=== PATIENT | female | born 1965 | race Caucasian/White ===

== ENCOUNTER → 2020-09-19 | Outpatient (CLI) | payer OTHER ==
[~2020-09-19] MED LIST: HOLD METFORMIN - RECEIVED CONTRAST 20 ML VIAL IV SCH; IOHEXOL 350 MG/ML 100 ML (OMNIPAQUE 350) VIAL IV ONE; NS 100 ML (IVPB) BAG IV ONE
--- NOTE | 2020-09-19 10:00 | Diagnostic Imaging Report ---
PROCEDURE: CT head with and without contrast. TECHNIQUE: Multiple contiguous axial images were obtained through the brain before and after the administration of intravenous contrast. Auto Exposure Controls were utilized during the CT exam to meet ALARA standards for radiation dose reduction. INDICATION: Headache and nosebleeds for 1 month. COMPARISON: No prior studies are available for comparison. FINDINGS: The ventricles and sulci are within normal limits. No sulcal effacement or midline shift is detected. No acute intra-axial or extra-axial hemorrhage is identified. Post contrast images are without abnormal intracranial enhancement. There is symmetric enhancement to the posterior nasopharynx. The adenoidal tissue does appear to be prominent for the patient's age. Small cystic changes are located within the tissue. This is incompletely included on this exam. No other abnormalities are seen. IMPRESSION: 1. No acute intracranial process is detected. 2. The patient does have prominent adenoidal tissue for age which does show diffuse enhancement and some mild cystic changes. A dedicated CT neck with contrast would be useful for better characterization. Dictated by: Dictated on workstation # [id number]
== END ==
LOC: RAD 09:45
PROVIDERS: ATTEND Family Medicine
DX: R51.9 Headache, unspecified (principal); R04.0 Epistaxis; R42 Dizziness and giddiness
CPT/HCPCS: 70470

== ENCOUNTER → 2020-11-02 | Outpatient (CLI) | payer OTHER ==
[~2020-11-02] MED LIST changes: +CATHETER FLUSH 10 ML SYR IV PRN
--- NOTE | 2020-11-02 08:56 | Diagnostic Imaging Report ---
PROCEDURE: CT neck soft tissue with contrast. TECHNIQUE: Multiple contiguous axial images were obtained through the neck after the administration of contrast. Auto Exposure Controls were utilized during the CT exam to meet ALARA standards for radiation dose reduction. INDICATION: Headaches since August. Left-sided ischemic attack. COMPARISON: 09/19/2020. Findings: The posterior nasopharynx and oropharynx demonstrate appropriate symmetry. There is no displacement of the parapharyngeal fat planes. There is no abnormal process evident within the prevertebral or retropharyngeal space. There is no evidence of abnormal thickening of the epiglottis or aryepiglottic folds. The vocal folds appear symmetric. The parotid, submandibular and thyroid gland are unremarkable. No pathologically enlarged cervical lymph nodes are evident. No focal inflammatory changes are demonstrated. No soft tissue mass or fluid collection demonstrated. The vascular structures the neck demonstrate no evidence of high-grade stenosis on this nondedicated exam. Small amount of centrilobular emphysema is seen in the lung apices. No focal consolidations. The visualized intracranial contents demonstrate no evidence of pathologic intracranial enhancement or intracranial mass effect. Visualized orbital contents are unremarkable. The visualized paranasal sinuses are clear. The mastoids and middle ears are clear. No acute osseous abnormality in the cervical spine. Impression: 1. Appropriate symmetry of the aerodigestive tract. 2. No evidence of pathologic adenopathy. 3. No soft tissue mass, fluid collection or focal inflammatory changes demonstrated. 4. Small amount of centrilobular emphysema in the lung apices. Dictated by: Dictated on workstation # [id number]
--- NOTE | 2020-11-02 12:36 | Diagnostic Imaging Report ---
PROCEDURE: US carotid duplex, bilateral. TECHNIQUE: Multiple real-time grayscale images were obtained over the carotid arteries in various projections, bilaterally. Additional spectral analysis and color Doppler duplex images were also obtained. INDICATION: Ischemic attack, left-side. COMPARISON: There are no prior studies available for comparison. There is mild soft plaque formation in both carotid systems. The flow velocities failed to show any sign of a hemodynamically significant stenosis of the common or internal carotid arteries. Both vertebral arteries were noted and there was antegrade flow bilaterally. IMPRESSION: .There is mild atherosclerotic disease involving both carotid systems. There is no evidence for a hemodynamically significant stenosis of the common or internal carotid arteries however. Parameters based on the consensus panel Chacon-Scale and Doppler ultrasound criteria published September 2003, Radiology, Volume 229. DOPPLER (peak systolic velocity M/S Right Left CCA .63 .74 ICA Proximal 1.0 .69 ICA Mid 1.1 .88 ICA Distal 1.2 1.0 RATIO 1.6 1.5 ECA .50 .76 VERT .68 .71 Dictated by: Dictated on workstation # [id number]
== END ==
LOC: RAD 07:51
PROVIDERS: ATTEND Family Medicine
DX: I69.354 Hemiplegia and hemiparesis following cerebral infarction affecting left non-dominant side (principal); J43.9 Emphysema, unspecified
CPT/HCPCS: 70491; 93880

== ENCOUNTER 2021-05-16 19:33 | Emergency (ER) | payer OTHER ==
[~2021-05-16] VITALS: Ht 157.5 cm; Wt 51.3 kg
[2021-05-16 20:00] VITALS: BP 124/71
[2021-05-16] MEDS ORDERED: PRD20T PO (20:11)
--- NOTE | 2021-05-16 20:11 | ED Integumentary General ---
General Chief Complaint: Bite-Animal/Human/Insect Stated Complaint: SORE ON L LEG Source: patient Exam Limitations: no limitations History of Present Illness Date Seen by Provider: May 16, 2021 Time Seen by Provider: 20:02 Initial Comments This is a well-appearing 56-year-old female who presents to the ER with complaints of left lower extremity pain after being bit by a spider 2 nights ago. States she wanted to have area checked out because her brother believes the spider was a brown recluse. No fevers, rashes, chills, nausea, vomiting, diarrhea, abdominal pain. Allergies and Home Medications Allergies Coded Allergies: No Allergy Information Available (Unverified , 09/19/20) Home Medications Prednisone 20 Mg Tab, 10 MG PO DAILY Prescribed by: BRINDA CHAPARRO on 05/16/212010 Patient Home Medication List Home Medication List Reviewed: Yes Review of Systems Review of Systems Constitutional: no symptoms reported EENTM: no symptoms reported Respiratory: no symptoms reported Cardiovascular: no symptoms reported Gastrointestinal: no symptoms reported Genitourinary: no symptoms reported Musculoskeletal: no symptoms reported Skin: see HPI Psychiatric/Neurological: No Symptoms Reported Endocrine: No Symptoms Reported Physical Exam Vital Signs Vital Signs - First Documented 05/16/21 20:00 Temp 36.7 Pulse 91 Resp 16 B/P (MAP) 124/71 (88) Pulse Ox 97 O2 Delivery Room Air Capillary Refill : General Appearance: WD/WN, no apparent distress HEENT: PERRL/EOMI, normal ENT inspection Neck: full range of motion, normal inspection Cardiovascular: normal peripheral pulses, regular rate, rhythm Respiratory: lungs clear, normal breath sounds Gastrointestinal: normal bowel sounds, non tender, soft Extremities: normal range of motion, normal inspection; No swelling Neurologic/Psychiatric: no motor/sensory deficits, alert, normal mood/affect, oriented x 3 Skin: normal color, warm/dry Skin Problem Location: other (Left lateral calf ) Skin Problem Character: lesion (dry pink scab, no rash, redness, or warmth to area. No purplish center or bullseye appreciated. ) Progress/Results/Core Measures Results/Orders My Orders Orders - BRINDA CHAPARRO APRN Prednisone Tablet (Deltasone Tablet) (05/16/21 20:15) Vital Signs/I&O 05/16/21 20:00 Temp 36.7 Pulse 91 Resp 16 B/P (MAP) 124/71 (88) Pulse Ox 97 O2 Delivery Room Air Departure Impression Primary Impression: Spider bite wound Disposition: 01 HOME, SELF-CARE Condition: Stable Departure-Patient Inst. Decision time for Depature: 20:09 Referrals: JO ANN GROVES DO (PCP/Family) Primary Care Physician Patient Instructions: Spider Bites Add. Discharge Instructions: Plan: 1. Take Prednisone daily with food. 2. Use ice to area 20 minutes at a time. AVOID heat. 3. May take Tylenol or Ibuprofen as needed for pain per package. 4. Return for any new, concerning, or worsening symptoms. All discharge instructions reviewed with patient and/or family. Voiced understanding. Scripts Prednisone (Prednisone) 20 Mg Tab 10 MG PO DAILY for 4 Days, #2 TAB 0 Refills Prov: BRINDA CHAPARRO GREY IRON MOLDER 05/16/21 BRINDA CHAPARRO GREY IRON MOLDER May 16, 2021 20:11
[2021-05-16] MEDS ORDERED: predniSONE 10 MG TAB PO ONE (20:15)
== END 2021-05-16 20:14 | disposition home or self-care (01) ==
LOC: EDUNIT# 19:33 → ER 19:34
DX: T63.301A Toxic effect of unspecified spider venom, accidental (unintentional), initial encounter (principal)
CPT/HCPCS: 99283

== ENCOUNTER 2021-05-30 06:16 | Outpatient (CLI) | payer OTHER ==
[~2021-05-30] VITALS: Ht 157.5 cm; Wt 53.5 kg
[~2021-05-30 06:16] MED LIST changes: -CATHETER FLUSH 10 ML SYR IV PRN; -HOLD METFORMIN - RECEIVED CONTRAST 20 ML VIAL IV SCH; -IOHEXOL 350 MG/ML 100 ML (OMNIPAQUE 350) VIAL IV ONE; -NS 100 ML (IVPB) BAG IV ONE; +PRD20T PO
[2021-06-01] MEDS ORDERED: LISI10TA25 PO (14:06)
[2021-06-01] MEDS ORDERED: LORA10TA7 PO (14:06)
== END 2021-06-01 14:14 | disposition home or self-care (01) ==
LOC: PREOP 06:16
PROVIDERS: ATTEND Surgery
DX: Z01.818 Encounter for other preprocedural examination (principal)

== ENCOUNTER 2021-06-06 09:26 | Day surgery (SDC) | payer OTHER ==
[~2021-06-06] VITALS: Ht 157.5 cm; Wt 53.5 kg
[2021-06-06] VITALS (10 sets, daily range): BP systolic 92–107; BP diastolic 53–64
[~2021-06-06 09:26] MED LIST changes: +LISI10TA25 PO; +LORA10TA7 PO
[2021-06-06] MEDS ORDERED: ceFAZolin 2 GM IV Premixed 50 ML IV ONE (09:45)
--- NOTE | 2021-06-06 10:14 | Progress Note-Pre Operative ---
Pre-Operative Progress Note H&P Reviewed The H&P was reviewed, patient examined and no changes noted. Time Seen by Provider: 10:11 Date H&P Reviewed: Jun 06, 2021 Time H&P Reviewed: 10:11 Pre-Operative Diagnosis: Right cheek mass, site marked WALTER MARTIN DO Jun 06, 2021 10:14
[2021-06-06] MEDS ORDERED: LIDOCAINE PF 2% 5 ML (XYLOCAINE) VIAL ONE (10:27)
[2021-06-06] MEDS ORDERED: fentaNYL INJ 100 MCG/2 ML AMP ONE (10:27)
[2021-06-06] MEDS ORDERED: proPOfol 200 MG/20 ML (DIPRIVAN) VIAL IV ONE (10:27)
[2021-06-06] MEDS ORDERED: MIDAZOLAM 2 MG/2 ML (VERSED) VIAL ONE (10:28)
[2021-06-06] MEDS: LACTATED RINGERS 1,000 ML IV PRN ×2 (10:37→11:44)
[2021-06-06] MEDS ORDERED: LIDOCAINE/EPI 1%-1:100,000 (XYLOCAINE) 20ML ONE (10:43)
[2021-06-06] MEDS ORDERED: ONDANSETRON 4 MG/2 ML (SDV) Z0FRAN ONE ×2 (10:59→11:38)
[2021-06-06] MEDS ORDERED: ACHD5005 PO (11:27)
--- NOTE | 2021-06-06 11:27 | Progress Note-Post Operative ---
Post-Operative Progess Note Surgeon (s)/Desktop Support Technician (s) Surgeon WALTER MARTIN DO Desktop Support Technician: none Pre-Operative Diagnosis Right cheek mass, site marked Post-Operative Diagnosis same it was subQ and possibly sebaceous cyst Procedure & Operative Findings Date of Procedure 06/06/21 Procedure Performed/Findings Exc SubQ cheek mass, 3 x 1.6cm incision Anesthesia Type LMA Estimated Blood Loss Estimated blood loss (mL): scant Specimens/Packing Specimens Removed cheek mass WALTER MARTIN DO Jun 06, 2021 11:27
--- NOTE | 2021-06-06 11:29 | Discharge Inst-Surgical ---
Discharge Inst-Surgical Depart Medication/Instructions New, Converted or Re-Newed RX: Transmitted to Pharmacy Patient Instructions Follow up Appt: Make appointment for 1 week. [phone] Instructions: No lifting greater than 20 pounds. No strenuous activity. May shower in 24 hours, no tub bath or soaking. Use incentive spirometer at home as directed. No Smoking Skin/Wound Care: May remove bandages in am. You need to leave the Dermabond on incision it will fall off on it's own. Symptoms to Report: Appetite Changes, Extremity Discoloration, Numbness/Tingling, Swelling Increased, Bleeding Excessive, Eyesight Changes, Pain Increased, Urine Color Change, Constipation(Persistent), Fever over 101 degree F, Pain/Pressure in chest, Urinating Difficulty, Cough Up/Vomit Blood, Heart Beat Irreg/Pounding, Pain/Pressure in jaw, Cramps in feet or legs, Lightheadedness, Pain/Pressure in shoulder, Diarrhea(Persistent), Memory Changes Suddenly, Questions/Concerns, Weight gain consecutive days, Dizziness/Fainting, Nausea/Vomiting, Shortness of Breath, Weight gain over 2 pounds If questions or concerns contact your physician Or seek help at emergency department. Activity Activity as Tolerated: Yes Activity Instructions: Avoid Stress to Incision Driving Instructions: No Driving/Refer to Dr. Torres Discharge Diet: No Restrictions Diet After 24 Hours: Clear Liquid if Nauseous If Any Problems/Questions/Issu: Contact Your Physician, Go to Emergency Room Skin/Wound Care Infection Signs and Symptoms: Increased Redness, Foul Odor of Wound, Increased Drainage, Skin Itchy or Has a Rash, Increased Swelling, Temperature Above 101 F Bathing Instructions: Shower Stitches/[place]/Dermabond Dis: WALTER Perera DO Jun 06, 2021 11:29
[2021-06-06] MEDS ORDERED: SEVOFLURANE (ULTANE) 15 ML INHAL SOLN ONE (11:33)
--- NOTE | 2021-06-06 11:38 | Anesthesia-General Post-Op ---
General Patient Condition Mental Status/LOC: Same as Preop Cardiovascular: Satisfactory Nausea/Vomiting: Absent Respiratory: Satisfactory Pain: Controlled Complications: Absent Post Op Complications Complications None Follow Up Care/Instructions Patient Instructions None needed. Anesthesia/Patient Condition Patient Condition Patient is doing well, no complaints, stable vital signs, no apparent adverse anesthesia problems. No complications reported per nursing. EZRA ANN CRNA Jun 06, 2021 11:38
[2021-06-06] MEDS ORDERED: ONDANSETRON 4 MG/2 ML (SDV) Z0FRAN IVP PRN (11:45)
[2021-06-06] MEDS ORDERED: PROMETHAZINE INJ 25 MG/ML (PHENERGAN) AMP IVP ONE (11:45)
[2021-06-06] MEDS ORDERED: MEPERIDINE (DEMEROL) INJ 50 MG/ML IVP ONE (11:45)
[2021-06-06] MEDS ORDERED: morphine INJ 10 MG/ML 1ML (SYR OR VIAL) IVP ONE (11:45)
--- NOTE | 2021-06-06 18:02 | OPERATIVE REPORT ---
DATE OF SERVICE: PREOPERATIVE DIAGNOSIS: Right cheek mass. POSTOPERATIVE DIAGNOSIS: Right cheek mass, subcutaneous, possible sebaceous cyst. PROCEDURE PERFORMED: Excision of right cheek mass, 3 cm x 1.6 cm incision. SURGEON: Quincy Bernard DO. URBAN DESIGNER: None. ANESTHESIA: LMA. SPECIMEN: Right cheek mass. BLOOD LOSS: Scant. FLUIDS: Per anesthesia. POSTOPERATIVE CONDITION: Stable. INDICATION FOR PROCEDURE: The patient is a 56-year-old female, who has had a mass removed in the office, came back right away and she wanted this removed in the hospital. FINDINGS: The patient had a right cheek mass. It looked like it was subcutaneous and when we were taking it out, it got a little bit of whitish material, so it looked like may have been a sebaceous cyst, removed and sent to pathology. PROCEDURE NOTE: After informed consent was obtained, the patient was brought to the operating room, and placed on the operating table in supine position. She was sterilely prepped and draped in a normal fashion. Local lidocaine was used to infiltrate the skin around this right cheek mass. For elliptical incision, I used a marking to draw on the skin and then infiltrated under this Marcaine with lidocaine and I made an incision with a #15 blade along this marking, carried down through the skin into the subcutaneous tissue and deepened down to the subcutaneous tissue with Bovie electrocautery, removing the skin and subcutaneous tissue, removing the subcutaneous mass that was in the subcutaneous fat, removed in en bloc. There was a little bit of white material that came out on top of the skin, so this may have been a sebaceous cyst. This was all passed off the table and sent to pathology. At this point, I then obtained hemostasis and then closed the incision with 4-0 undyed Monocryl, three interrupted subcuticular stitches and it closed very nicely. Skin Affix was placed. The patient tolerated the procedure. Sponge, instrument and needle counts were correct at the end of the case and she was transferred to the recovery room in stable condition. Job ID: [id number] DocumentID: [id number] Dictated Date: 06/06/2021 11:57:33 Rental Sales Associate Date: 06/06/2021 18:02:00 Dictated By: QUINCY BERNARD DO
== END 2021-06-06 13:12 | disposition home or self-care (01) ==
LOC: SDC 09:26
PROVIDERS: ATTEND Surgery
DX: L72.0 Epidermal cyst (principal); L90.5 Scar conditions and fibrosis of skin; I10 Essential (primary) hypertension; F17.210 Nicotine dependence, cigarettes, uncomplicated; Z79.899 Other long term (current) drug therapy
CPT/HCPCS: 87081; 88304

== ENCOUNTER 2022-03-25 19:34 | Emergency (ER) | payer OTHER ==
[~2022-03-25 19:34] MED LIST changes: +ACHD5005 PO
[2022-03-25] MEDS ORDERED: TETANUS,DIPTH,PERTUSS P/F (BOOSTRIX) 0.5 ML VIAL IM ONE (20:15)
[2022-03-25] MEDS ORDERED: ASPIRIN 81 MG CHEW (CHILDREN'S ASA) PO ONE (20:15)
[2022-03-25] MEDS ORDERED: LACTATED RINGERS 1,000 ML IV ONE (20:15)
[2022-03-25] MEDS ORDERED: ONDANSETRON 4 MG/2 ML (SDV) Z0FRAN IVP ONE (20:15)
[2022-03-25 20:53] LABS: BASOPHILS # (AUTO) 0.1 10^3/uL (0.0-0.1); BASOPHILS % (AUTO) 1 % (0-10); EOSINOPHILS # (AUTO) 0.2 10^3/uL (0.0-0.3); EOSINOPHILS % (AUTO) 2 % (0-10); HEMATOCRIT 39 % (35-52); LYMPHOCYTES # (AUTO) 2.3 10^3/uL (1.0-4.0); LYMPHOCYTES % (AUTO) 22 % (12-44); MEAN CORPUSCULAR HEMOGLOBIN 31 pg (25-34); MEAN CORPUSCULAR HGB CONC 33 g/dL (32-36); MEAN CORPUSCULAR VOLUME 93 fL (80-99); MEAN PLATELET VOLUME 12.2 fL (9.0-12.2); MONOCYTES # (AUTO) 0.5 10^3/uL (0.0-1.0); MONOCYTES % (AUTO) 5 % (0-12); NEUTROPHILS # (AUTO) 7.5 10^3/uL (1.8-7.8); NEUTROPHILS % (AUTO) 71 % (42-75); PLATELET COUNT 171 10^3/uL (130-400); WHITE BLOOD COUNT 10.6 10^3/uL (4.3-11.0)
[2022-03-25 21:01] LABS: ALBUMIN 3.9 GM/DL (3.2-4.5); POTASSIUM 4.3 MMOL/L (3.6-5.0)
[2022-03-25 21:02] LABS: CALCIUM 8.8 MG/DL (8.5-10.1)
[2022-03-25 21:04] LABS: INR 0.9 (0.8-1.4); PROTHROMBIN TIME PATIENT 12.8 SEC (12.2-14.7); TOTAL PROTEIN 6.5 GM/DL (6.4-8.2)
[2022-03-25 21:05] LABS: BILIRUBIN,TOTAL 0.3 MG/DL (0.1-1.0)
[2022-03-25 21:07] LABS: CREATININE SERUM 0.79 MG/DL (0.60-1.30)
--- NOTE | 2022-03-25 21:13 | Diagnostic Imaging Report ---
INDICATION: Chest pain. TECHNIQUE: Single view chest 8:53 PM. CORRELATION STUDY: None FINDINGS: The heart size, mediastinal configuration and pulmonary vascularity are within normal limits. Lung arellano are clear. However, there is prominence of the interstitial markings likely chronic in nature. No effusion or pneumothorax. IMPRESSION: 1. Negative appearing single view chest. Chronic appearing changes of the lung parenchyma. Dictated by: Dictated on workstation # [id number]
--- NOTE | 2022-03-25 21:13 | Diagnostic Imaging Report ---
INDICATION: Cut left index finger. TECHNIQUE: Single view left hand with 2 additional views left index finger, 8:54 PM. CORRELATION STUDY: None FINDINGS: Osseous structures of the left hand with attention to the left index finger are intact. There is no acute fracture or dislocation. There is mild soft tissue prominence of the index finger. Very small bone fragment adjacent to the distal interphalangeal joint, likely of no acute significance. There is no radiographic evidence for an acute foreign body. IMPRESSION: 1. Negative for acute bony abnormality of the hand with attention to the left index finger. 2. Soft tissue prominence of the left index finger. Punctate density adjacent to the distal interphalangeal joint, likely calcification. No definitive radiographic evidence for an acute foreign body. Dictated by: Dictated on workstation # [id number]
--- NOTE | 2022-03-25 23:37 | ED Cardiac General ---
History of Present Illness General Chief Complaint: Chest Pain Stated Complaint: CUT FINGER,CHEST PAIN, DIZZY Nursing Triage Note: TO ED VIA POV AND AMBULATORY TO ROOM 9 WITH C/O CUTTING INDEX FINGER ON LEFT HAND AT WORK, SHE WRAPPED IT UP AND THEN LATER UNWRAPPED IT AND BECAUSE DIZZY, NAUSEATED, SOA, AND HAD CP AND LEFT ARM NUMBNESS. DENIES CP AT THIS TIME, BUT HAS CONTINUED LEFT ARM NUMBNESS. LAST TETANUS UNKNOWN. 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 Source: patient Exam Limitations: no limitations History of Present Illness Date Seen by Provider: March 25, 2022 Time Seen by Provider: 19:58 Initial Comments This 57-year-old woman presents to the emergency room with complaints of tachycardia, lightheadedness, chest pain, dizziness, and nausea that occurred after she cut her finger at work and experienced heavy bleeding. The incident occurred around 1700. 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 She experienced heavy bleeding that saturated a paper towel. When experiencing this she became lightheaded and eventually developed the symptoms described above. Symptoms were so disruptive that she could not continue working even after the bleeding stopped. EMS arrived on scene and found her to have improved symptoms and stable vital signs. She elected to present to the ER by private vehicle. Symptoms have since improved but she is left with some left arm numbness sensation. She denies any chest pain in the ER. She has no known history of coronary artery disease but has significant risk factors including smoking, hypertension, family history, and history of stroke. She does not know when her last tetanus immunization was. 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 Allergies and Home Medications Allergies Coded Allergies: No Known Drug Allergies (Unverified , 06/06/21) Patient Home Medication List Home Medication List Reviewed: Yes Hydrocodone Bit/Acetaminophen (HYDROcodone/APAP 5 MG/325 MG TAB) 1 Tab Tab, 1 T AB PO Q8H PRN for PAIN-MODERATE (5-7) Prescribed by: WALTER MARTIN on 06/06/21 1128 Lisinopril (Lisinopril) 10 Mg Tablet, 10 MG PO DAILY, (Reported) Entered as Reported by: KASI VIEYRA on 06/01/21 1406 Loratadine (Loratadine) 10 Mg Tablet, 10 MG PO DAILY, (Reported) Entered as Reported by: KASI VIEYRA on 06/01/21 1406 Review of Systems Review of Systems Constitutional: see HPI EENTM: No Symptoms Reported Respiratory: No Symptoms Reported Cardiovascular: See HPI Gastrointestinal: See HPI Genitourinary: No Symptoms Reported Musculoskeletal: no symptoms reported Skin: no symptoms reported Psychiatric/Neurological: See HPI Endocrine: No Symptoms Reported Hematologic/Lymphatic: No Symptoms Reported Past Zsvtooz-Sjwesa-Cryiqp Hx Patient Social History Tobacco Use?: Yes Tobacco type used: Cigarettes Smoking Status: Current Everyday Smoker Substance use?: No Alcohol Use?: No Immunizations Up To Date Influenza Vaccine Up-to-Date: No; Not Current COVID19 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 HAS HAD Seasonal Allergies Seasonal Allergies: No Past Medical History Surgeries: Yes (Benign facial lesion excision) Hysterectomy, Orthopedic Respiratory: No Cardiac: Yes Hypertension Neurological: Yes Headaches /Migraines, Stroke MANAGER ENERGY History: Hysterectomy Genitourinary: No Gastrointestinal: No Musculoskeletal: No Endocrine: No HEENT: No Cancer: No Psychosocial: No Integumentary: Yes (RIGHT CHEEK MASS) Blood Disorders: No Family Medical History Heart Disease Physical Exam Vital Signs Vital Signs - First Documented 03/25/22 19:50 Temp 36.5 Pulse 76 Resp 16 B/P (MAP) 123/78 (93) Pulse Ox 98 O2 Delivery Room Air Capillary Refill : Less Than 3 Seconds Height, Weight, BMI Height: '" Weight: lbs. oz. kg; 21.56 BMI Method: General Appearance: No Apparent Distress, WD/WN, Thin HEENT: PERRL/EOMI, Normal ENT Inspection Neck: Normal Inspection; No JVD Respiratory: Lungs Clear, Normal Breath Sounds, No Accessory Muscle Use Cardiovascular: Regular Rate, Rhythm, No Edema, No Murmur, Normal Peripheral Pulses Gastrointestinal: Normal Bowel Sounds, Non Tender, Soft Extremity: No Pedal Edema, Other (Tip of left index finger demonstrates blood underneath the nail edge. No obvious wound or foreign body is evident. She has minor tenderness at the tip of the finger. 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 Skin: Normal Color, Warm/Dry Progress/Results/Core Measures Results/Orders Lab Results Laboratory Tests Test 03/25/22 20:40 03/25/22 22:35 Range/Units White Blood Count 10.6 4.3-11.0 10^3/uL Red Blood Count 4.20 3.80-5.11 10^6/uL Hemoglobin 13.0 11.5-16.0 g/dL Hematocrit 39 35-52 % Mean Corpuscular Volume 93 80-99 fL Mean Corpuscular Hemoglobin 31 25-34 pg Mean Corpuscular Hemoglobin Concent 33 32-36 g/dL Red Cell Distribution Width 12.5 10.0-14.5 % Platelet Count 171 130-400 10^3/uL Mean Platelet Volume 12.2 9.0-12.2 fL Immature Granulocyte % (Auto) 0 % Neutrophils (%) (Auto) 71 42-75 % Lymphocytes (%) (Auto) 22 12-44 % Monocytes (%) (Auto) 5 0-12 % Eosinophils (%) (Auto) 2 0-10 % Basophils (%) (Auto) 1 0-10 % Neutrophils # (Auto) 7.5 1.8-7.8 10^3/uL Lymphocytes # (Auto) 2.3 1.0-4.0 10^3/uL Monocytes # (Auto) 0.5 0.0-1.0 10^3/uL Eosinophils # (Auto) 0.2 0.0-0.3 10^3/uL Basophils # (Auto) 0.1 0.0-0.1 10^3/uL Immature Granulocyte # (Auto) 0.0 0.0-0.1 10^3/uL Prothrombin Time 12.8 12.2-14.7 SEC INR Comment 0.9 0.8-1.4 Activated Partial Thromboplast Time 31 24-35 SEC Sodium Level 137 135-145 MMOL/L Potassium Level 4.3 3.6-5.0 MMOL/L Chloride Level 100 98-107 MMOL/L Carbon Dioxide Level 26 21-32 MMOL/L Anion Gap 11 5-14 MMOL/L Blood Urea Nitrogen 8 7-18 MG/DL Creatinine 0.79 0.60-1.30 MG/DL Estimat Glomerular Filtration Rate 88 BUN/Creatinine Ratio 10 Glucose Level 91 70-105 MG/DL Calcium Level 8.8 8.5-10.1 MG/DL Corrected Calcium 8.9 8.5-10.1 MG/DL Magnesium Level 2.0 1.6-2.4 MG/DL Total Bilirubin 0.3 0.1-1.0 MG/DL Aspartate Amino Transf (AST/SGOT) 13 5-34 U/L Alanine Aminotransferase (ALT/SGPT) 11 0-55 U/L Alkaline Phosphatase 83 40-136 U/L Myoglobin 25.2 10.0-92.0 NG/ML Troponin I < 0.028 < 0.028 <0.028 NG/ML Total Protein 6.5 6.4-8.2 GM/DL Albumin 3.9 3.2-4.5 GM/DL My Orders Orders - DICK URRUTIA MD Ekg Tracing (03/25/22 19:48) Cbc With Automated Diff (03/25/22 20:00) Magnesium (03/25/22 20:00) Chest 1 View, Ap/Pa Only (03/25/22 20:00) Comprehensive Metabolic Panel (03/25/22 20:00) Myoglobin Serum (03/25/22 20:00) Protime With Inr (03/25/22 20:00) Partial Thromboplastin Time (03/25/22 20:00) O2 (03/25/22 20:00) Monitor-Rhythm Ecg Trace Only (03/25/22 20:00) Ed Iv/Invasive Line Start (03/25/22 20:00) Troponin I Fran (03/25/22 20:00) Ondansetron Injection (Zofran Injectio (03/25/22 20:15) Lactated Ringers (Lr 1000 Ml Iv Solution (03/25/22 20:15) Dipht,Pertuss(Acell),Tet Adult (Boostrix (03/25/22 20:15) Finger(S) (03/25/22 20:12) Aspirin Chewable Tablet (Baby Aspirin Ch (03/25/22 20:15) Troponin I [place] (03/25/22 22:40) Medications Given in ED Current Medications Medications Dose Ordered Sig/Teresa Route Start Time Stop Time Status Last Admin Dose Admin Aspirin 324 mg ONCE ONCE PO 03/25/22 20:15 03/25/22 20:16 DC 03/25/22 20:39 324 MG Diphtheria/ Tetanus/Acell Pertussis 0.5 ml ONCE ONCE IM 03/25/22 20:15 03/25/22 20:16 DC 03/25/22 20:55 0.5 ML Lactated Ringer's 1,000 ml @ 0 mls/hr Q0M ONCE IV 03/25/22 20:15 03/25/22 20:16 DC 03/25/22 20:39 999 MLS/HR Ondansetron HCl 4 mg ONCE ONCE IVP 03/25/22 20:15 03/25/22 20:16 DC 03/25/22 20:39 4 MG Vital Signs/I&O 03/25/22 03/25/22 19:50 23:54 Temp 36.5 36.4 Pulse 76 65 Resp 16 16 B/P (MAP) 123/78 (93) 107/58 Pulse Ox 98 99 O2 Delivery Room Air Room Air 03/26/22 00:00 Intake Total 1000 ml Balance 1000 ml Blood Pressure Mean: 93 Progress Progress Note : Progress Note Cardiopulmonary work-up was unremarkable including repeat troponin. Patient received aspirin, Zofran, and a liter of LR. Tetanus booster was administered. Left index finger was soaked in saline and chlorhexidine for sanitization. X- ray was obtained to rule out foreign body under the fingernail. Patient was feeling well at the time of discharge. It was emphasized that coronary artery disease cannot be completely ruled out in the ER setting. She was advised that her situation today may have ineffective been a type of unintentional stress test which induced anginal symptoms. She was encouraged to seek referral to a car wash attendant for further evaluation. See discharge instructions for further discussion. Initial ECG Impression Date: March 25, 2022 Initial ECG Impression Time: 19:55 Initial ECG Rate: 5 Initial ECG Rhythm: Normal Sinus Initial ECG Intervals: Normal Initial ECG Impression: Normal Comment Normal sinus rhythm with no ST elevation or depression. No abnormal intervals or axis deviation. Diagnostic Imaging Diagonstic Imaging: Xray Plain Films/CT/US/NM/MRI: chest Comments Chest x-ray viewed by me and report reviewed. See report below: NAME: BASIA FELTON [employer] REC#: [id number] PT STATUS: REG ER : 1965 PHYSICIAN: DICK URRUTIA MD ADMIT DATE: 03/25/22/ER Signed Date of Exam:03/25/22 CHEST 1 VIEW, AP/PA ONLY INDICATION: Chest pain. TECHNIQUE: Single view chest 8:53 PM. CORRELATION STUDY: None FINDINGS: The heart size, mediastinal configuration and pulmonary vascularity are within normal limits. Lung arellano are clear. However, there is prominence of the interstitial markings likely chronic in nature. No effusion or pneumothorax. IMPRESSION: 1. Negative appearing single view chest. Chronic appearing changes of the lung parenchyma. Dictated by: Dictated on workstation # [id number] Dict: 03/25/222099 Trans: 03/25/222324 [facility] [id number] Interpreted by: LUCRECIA THURMAN DO Electronically signed by: LUCRECIA THURMAN DO 03/25/222324 Diagonstic Imaging: Xray Plain Films/CT/US/NM/MRI: other (Finger) Comments Finger x-rays viewed by me and report reviewed. See report below: NAME: BASIA FELTON [employer] REC#: [id number] PT STATUS: REG ER : 1965 PHYSICIAN: DICK URRUTIA MD ADMIT DATE: 03/25/22/ER Signed Date of Exam:03/25/22 FINGER(S) INDICATION: Cut left index finger. TECHNIQUE: Single view left hand with 2 additional views left index finger, 8:54 PM. CORRELATION STUDY: None FINDINGS: Osseous structures of the left hand with attention to the left index finger are intact. There is no acute fracture or dislocation. There is mild soft tissue prominence of the index finger. Very small bone fragment adjacent to the distal interphalangeal joint, likely of no acute significance. There is no radiographic evidence for an acute foreign body. IMPRESSION: 1. Negative for acute bony abnormality of the hand with attention to the left index finger. 2. Soft tissue prominence of the left index finger. Punctate density adjacent to the distal interphalangeal joint, likely calcification. No definitive radiographic evidence for an acute foreign body. Dictated by: Dictated on workstation # [id number] Dict: 03/25/222101 Trans: 03/25/222324 [facility] [id number] Interpreted by: LUCRECIA THURMAN DO Electronically signed by: LUCRECIA THURMAN DO 03/25/222324 Departure Impression Primary Impression: Chest pain Qualified Codes: R07.9 - Chest pain, unspecified Additional Impressions: Near syncope Palpitation Finger laceration Qualified Codes: S61.211A - Laceration without foreign body of left index finger without damage to nail, initial encounter Disposition: 01 HOME, SELF-CARE Condition: Improved Departure-Patient Inst. Decision time for Depature: 23:35 Referrals: JO ANN GROVES DO (PCP/Family) Primary Care Physician Patient Instructions: Chest Pain, Adult ED Add. Discharge Instructions: Take aspirin 81 mg daily until otherwise directed. Follow-up with Dr. Groves as soon as possible and seek referral to a car wash attendant for further cardiac evaluation. You have significant risk factors including smoking, family history, and high blood pressure that make further cardiac evaluation very important. Work toward quitting smoking as rapidly as possible. Return to the ER if you have recurrent episodes of chest pain. All discharge instructions reviewed with patient and/or family. Voiced und erstanding. Copy Copies To 1: JO ANN GROVES JOSHUA T MD March 25, 2022 23:37
[2022-03-25 23:54] VITALS: BP 107/58
== END 2022-03-25 23:54 | disposition home or self-care (01) ==
LOC: EDUNIT# 19:34 → ER 19:37
DX: S61.211A Laceration without foreign body of left index finger without damage to nail, initial encounter (principal); R07.89 Other chest pain; R55 Syncope and collapse; R00.2 Palpitations; F17.210 Nicotine dependence, cigarettes, uncomplicated; Z23 Encounter for immunization; W45.8XXA Other foreign body or object entering through skin, initial encounter; Y92.59 Other trade areas as the place of occurrence of the external cause; Y99.0 Civilian activity done for income or pay
CPT/HCPCS: 36415; 71045; 73140; 80053; 83735; 83874; 84484; 85025; 85610; 85730; 90715; 93005; 93041